=== PATIENT | male | born 1950 | race Caucasian/White ===

== ENCOUNTER 2016-05-31 18:30 | Inpatient (IN) ==
[~2016-05-31 18:30] MED LIST: Clinimix E 5%-15% SOLUTION 2,000 ML with MVI, adult with vitamin K 10 ML IVC SCH
[2016-05-31] MEDS ORDERED: (Alendronate Sodium [Fosamax] 70 MG) PO SCH (19:45)
[2016-05-31] MEDS: *HR* HYDROcodone/Acet 10/325 mg TABLET PO PRN (21:58)
[2016-06-01] MEDS ORDERED: LOVASTATIN 60 MG PO SCH (09:00)
--- NOTE | 2016-06-01 11:14 | Internal Med History&Physical ---
Date of Encounter: 06/01/16 Time of Encounter: 10:30 Assessment and Plan (1) Metastatic colon cancer to liver Current visit: No Status: Acute As per oncologists. (2) History of CVA with residual deficit Current visit: No Status: Chronic He is not on OAC or antiplatelet agents at this time. Head CT of 04/08/2016 at [facility] showed old infarct in the left MCA distribution. I will start him on aspirin 81 mg daily (3) Hypertension Current visit: No Status: Chronic Continue Norvasc and Zestril. Qualifiers: Hypertension type: essential hypertension Qualified Code(s): I10 - Essential (primary) hypertension (4) Anemia Current visit: Yes Status: Acute We will order anemia testing in a.m. Qualifiers: Anemia type: unspecified type Qualified Code(s): D64.9 - Anemia, unspecified (5) Cellulitis of toe, left Current visit: Yes Status: Acute We will give oral doxycycline (6) Hospital acquired PNA Current visit: No Status: Acute He was started on antibiotics May 24. WBC is normal and he has been afebrile for 5 days. I will discontinue the [facility] Internal Medicine - H&P: HPI Chief complaint: Bowel obstruction Admitted From: Hospital to Hospital Transfer Plans for Post Hospital Care: Home History of present illness: Mr. Angel is a 66 year old male who was hospitalized at [facility] May 19- May 31 after presenting with bowel obstruction. He underwent expiratory laparotomy and development of an end colostomy and mucous fistula. He was placed on TPN since his oral intake postoperatively and it was continued since his oral intake was suboptimal. The last surgical progress note of May 30 states TPN was to be weaned off prior to discharge to [facility] swing bed. However orders were written by the discharging hospitalist to continue TPN. A liver biopsy done at surgery showed findings consistent with metastatic colon cancer. He was seen by oncology during his [facility] stay. From review of [facility] records it appears the initial diagnosis of cancer was made during the [facility] stay. He did not receive any definitive treatment for the malignancy during his hospital stay. He was admitted to [facility] swing bed for ongoing therapy. Past Med Surg Social Fam HX - Past Medical History Medical history: cancer, CVA, hypertension, other Psychiatric history: no psych history - Past Surgical History Surgical History: no surgical history - Social History Smoking Status: Current every day smoker Smokeless Tobacco Status: No Alcohol use: none Drug use: none - Family History Brother Family Member Ethnicity: Non- Living Status: Still Living Hx Family Cardiac Disorders: Yes (hypertension) Internal Medicine - H&P: Meds Alendronate Sodium [Fosamax] 70 mg PO QWEEK 05/20/16 [History] Amlodipine [Norvasc] 10 mg PO DAILY 05/20/16 [History] Calcium Carbonate [Tums] 650 mg PO DAILY 05/20/16 [History] Cholecalciferol (D-3) [Vitamin D] 2,000 unit PO DAILY 05/20/16 [History] Folic Acid 1 mg PO DAILY 05/20/16 [History] Lisinopril [Zestril] 10 mg PO DAILY 05/20/16 [History] Lovastatin [Altoprev] 60 mg PO DAILY 05/20/16 [History] Potassium Chloride [Klor-Con Sprinkle] 10 meq PO DAILY 05/20/16 [History] Terazosin [Hytrin] 5 mg PO DAILY 05/20/16 [History] HYDROcodone/Acet 10/325 mg [[place] 10-325 mg] 1 each PO Q6H PRN #20 tablet [Rx] Levofloxacin 750 mg PO DAILY #7 tablet 05/31/16 [Rx] Allergies simvastatin Adverse Reaction (Verified 05/20/16 09:58) See Comments UNABLE TO CONFIRM REACTION- [facility] AN ADVERSE REACTION WITH NO REACTION INDICATED All Systems PM: A 10-system review of systems was performed and is negative for pertinent findings except as documented above in the HPI. Review of systems: Gen.: His recorded weights since March 2016 show wide fluctuation ranging from 66.814 kg today to 82.917 kg on May 27. Cardiovascular: He states he has history of hypertension but denies MN heart failure angina DVT or pulmonary embolus Respiratory: He has smoked since age 22 up to 2 packs per day. He denies known chronic lung disease. GI: He had recent colostomy and mucous fistula surgery as per history of present illness. He has known liver metastases. Disorders other disorders of his liver or exocrine pancreas. : Denies hematuria dysuria or kidney stones Neurologic: He claims he had a stroke approximately 25 years ago leaving him with right hemiparesis and significant expressive dysphasia. He denies seizures. Endocrine: He denies diabetes thyroid disease or hyperlipidemia Hematology/oncology: He has colon cancer with metastases to the liver as per above. He had anemia documented during his recent hospital stay at [facility]. Psychiatric: He denies anxiety depression or other mental health issues Musculoskeletal: Denies arthritis gout or other bone joint or muscle disorders. He states he has not walked in many years. - Constitutional Vitals: Temp Pulse Resp BP Pulse Ox 97.4 F L 70 18 134/53 97 06/01/16 07:15 06/01/16 07:15 06/01/16 07:15 06/01/16 07:15 06/01/16 07:15 Exam: Gen.: He is a well-developed well-nourished male who appears in no severe distress at present time. HEENT: Head is atraumatic and normocephalic. Eyes: EOMI. There is no scleral icterus. Mouth: Mucosa is slightly dry Nose: He has surgical scar on the tip of his nose from presumed cancer surgery Neck: Supple and nontender. There is no thyromegaly or adenopathy noted. Heart: Regular without murmurs gallops or ectopics. Lungs: No wheezes or crackles are heard. Abdomen: He has a mucous fistula and end colostomy on his abdominal wall with collection bags in place. Abdomen is soft and nontender. No masses or guarding noted. Extremities: He has significant wasting of the muscles of his feet and legs and right arm. He has stage II pressure sores on the dorsal surface of the second third and fourth left toes at the DIP joint with erythema. The left leg is warm to touch without lymphangitic streaking noted. The right leg is cool to touch. Neurologic: Mental status: He seems to understand questions but has difficulty expressing answers. Cranial nerves: He has slight flattening of the right nasolabial fold. EOMI. Tongue protrudes midline. Forehead wrinkles bilaterally. Motor: He moves his left arm well. The right arm is immobile. Cerebellar: Finger to nose is intact with the left hand. Skin: He had pressure sores on his toes as described above. Otherwise skin is warm and dry. - VTE Documentation of Mechanical Device: Intermittent pneumatic compression device
[2016-06-01] MEDS: Cholecalciferol (D-3) 1,000 UNIT TABLET PO SCH (11:31)
[2016-06-01] MEDS: Folic Acid 1 MG TABLET PO SCH (11:31)
[2016-06-01] MEDS: Doxycycline 100 MG CAPSULE PO SCH ×2 (14:51→21:01)
[2016-06-01] MEDS ORDERED: 0.9 % Sodium Chloride 250 ML IVC ONE (20:20)
[2016-06-02] MEDS: *HR* Enoxaparin 40 MG/0.4 ML SYRINGE SQ SCH (06:12)
[2016-06-02] MEDS: Doxycycline 100 MG CAPSULE PO SCH ×2 (07:51→21:57)
[2016-06-02] MEDS: Aspirin 81 MG TAB.CHEW PO SCH (07:52)
[2016-06-02] MEDS: Cholecalciferol (D-3) 1,000 UNIT TABLET PO SCH (07:53)
[2016-06-02 09:11] LABS: Basophils # 0.1 K/mcL (0.0-0.2); Basophils % 1.3 %; Eosinophils # 0.6 K/mcL (0.0-0.6); Eosinophils % 5.8 %; Hematocrit 36.6 % (37.5-50.1); Hemoglobin 12.3 g/dL (12.9-16.9); Immature Granulocytes % 2.3 % (0-4); Lymphocytes # 1.9 K/mcL (0.6-4.6); Lymphocytes % 20.1 %; Mean Corpuscular HGB Conc 33.6 g/dL (31.6-35.5); Mean Corpuscular Hemoglobin 29.9 pg (28.0-33.3); Mean Corpuscular Volume 88.8 fL (83.0-100.0); Mean Platelet Volume 9.6 fL (9.4-12.4); Monocytes % 9.9 %; Neutrophils # 5.8 K/mcL (1.6-8.9); Platelet Count 313 K/mcL (140-400); Red Blood Count 4.12 M/mcL (4.19-5.50); Red Cell Distribution Width 15.6 % (11.5-14.5); Segmented Neutrophils % 60.6 %
[2016-06-02 11:25] LABS: Alanine Aminotransferase 52 Units/L (0-55); Albumin 2.5 g/dL (3.5-5.0); Albumin/Globulin Ratio 0.6 (1.1-2.2); Alkaline Phosphatase 225 Units/L (38-126); Aspartate Amino Transferase 50 Units/L (5-34); BUN/Creatinine Ratio 27 (6-26); Bilirubin,Total 0.4 mg/dL (0.2-1.2); Blood Urea Nitrogen 28 mg/dL (8-26); Calcium 8.9 mg/dL (8.6-10.8); Carbon Dioxide 26 mEq/L (19-29); Chloride 97 mEq/L (98-109); Globulin 4.1 g/dL (2.4-3.5); Glucose 100 mg/dL (70-99); Magnesium 2.1 mg/dL (1.6-2.6); Osmolality,Calculated 284 (280-300); Sodium 134 mEq/L (136-145); Total Protein 6.6 g/dL (6.0-8.3); eGFR For African Americans > 60 (> 60); eGFR For Non-African Americans > 60 (> 60)
--- NOTE | 2016-06-02 13:55 | Internal Med Progress Note ---
Date of Encounter: 06/02/16 Time of Encounter: 13:45 - Assessment and plan (1) Metastatic colon cancer to liver Current Visit: No Status: Acute Assessment and plan: June 02. As per oncologist (2) History of CVA with residual deficit Current Visit: No Status: Chronic Assessment and plan: June 02. Continue aspirin (3) Hypertension Current Visit: No Status: Chronic Assessment and plan: June 02. Norvasc and Zestril were discontinued because of hypotension. Will observe blood pressure without medication for now. Qualifiers: Hypertension type: essential hypertension Qualified Code(s): I10 - Essential (primary) hypertension (4) Anemia Current Visit: Yes Status: Acute Assessment and plan: June 02. Anemia testing is pending. Hemoglobin stable at 12.3. Qualifiers: Anemia type: unspecified type Qualified Code(s): D64.9 - Anemia, unspecified (5) Cellulitis of toe, left Current Visit: Yes Status: Acute Assessment and plan: June 02. Continue doxycycline (6) Hospital acquired PNA Current Visit: No Status: Acute Assessment and plan: June 02. Remain off antibiotics for now - Subjective Interval history: June 02. He has no new complaints - Constitutional Vitals: Temp Pulse Resp BP Pulse Ox 98.0 F 105 16 91/53 95 06/02/16 07:03 06/02/16 10:46 06/02/16 10:46 06/02/16 10:46 06/02/16 10:46 Exam: He is resting comfortably in bed. He is able to answer a few questions. His left toes shows slightly less erythema. Leg temperature more equal now. Reviewed his medications and lab results. Internal Medicine: Result - Labs CBC & Chem 7: 06/02/16 08:30 06/02/16 08:30 Labs: Short CBC 06/02/16 Range/Units 08:30 WBC 9.6 (4.3-11.1) K/mcL Hgb 12.3 L (12.9-16.9) g/dL Hct 36.6 L (37.5-50.1) % Plt Count 313 D (140-400) K/mcL Neutrophils # 5.8 (1.6-8.9) K/mcL BMP 06/02/16 08:30 Sodium 134 L Potassium 4.0 Chloride 97 L Carbon Dioxide 26 BUN 28 H D Creatinine 1.05 D Glucose 100 H Calcium 8.9 Liver Function 06/02/16 Range/Units 08:30 Total Bilirubin 0.4 (0.2-1.2) mg/dL AST 50 H (5-34) Units/L ALT 52 (0-55) Units/L Alkaline Phosphatase 225 H (38-126) Units/L Albumin 2.5 L (3.5-5.0) g/dL - VTE Documentation of Mechanical Device: Intermittent pneumatic compression device Consult Discharge Plan - Plan Referrals: Cristobal Barahona MD [Partnered Physician] - 06/06/16 8:10 am [place],PCP [Primary Care Provider] - 1 week
[2016-06-02 14:28] LABS: Folate 10.7 ng/mL (7.0-31.4)
[2016-06-02] MEDS: *HR* HYDROcodone/Acet 10/325 mg TABLET PO PRN (14:58)
[2016-06-02 15:57] LABS: % Iron Saturation 14 % (20-55); Iron 37 mcg/dL (65-175); Transferrin 185 mg/dL (174-364)
[2016-06-02 16:18] LABS: Ferritin 1622 ng/ml (22-275)
[2016-06-03] MEDS: *HR* Enoxaparin 40 MG/0.4 ML SYRINGE SQ SCH (05:01)
[2016-06-03] MEDS: *HR* HYDROcodone/Acet 10/325 mg TABLET PO PRN (05:01)
[2016-06-03] MEDS: Aspirin 81 MG TAB.CHEW PO SCH (08:22)
[2016-06-03] MEDS: Doxycycline 100 MG CAPSULE PO SCH (08:22)
[2016-06-03] MEDS: Cholecalciferol (D-3) 1,000 UNIT TABLET PO SCH (08:23)
[2016-06-03] MEDS: Folic Acid 1 MG TABLET PO SCH (08:23)
[2016-06-04] MEDS: Doxycycline 100 MG CAPSULE PO SCH ×3 (01:02→20:57)
[2016-06-04] MEDS: *HR* HYDROcodone/Acet 10/325 mg TABLET PO PRN ×3 (01:03→22:52)
[2016-06-04] MEDS: Folic Acid 1 MG TABLET PO SCH ×2 (01:08→10:09)
[2016-06-04] MEDS: Aspirin 81 MG TAB.CHEW PO SCH (10:09)
[2016-06-04] MEDS: *HR* Enoxaparin 40 MG/0.4 ML SYRINGE SQ SCH (10:09)
[2016-06-04] MEDS: Cholecalciferol (D-3) 1,000 UNIT TABLET PO SCH (10:09)
[2016-06-05] MEDS: *HR* HYDROcodone/Acet 10/325 mg TABLET PO PRN ×3 (05:55→18:17)
[2016-06-05] MEDS: *HR* Enoxaparin 40 MG/0.4 ML SYRINGE SQ SCH (05:55)
[2016-06-05] MEDS: Aspirin 81 MG TAB.CHEW PO SCH (09:48)
[2016-06-05] MEDS: Cholecalciferol (D-3) 1,000 UNIT TABLET PO SCH (09:49)
[2016-06-05] MEDS: Folic Acid 1 MG TABLET PO SCH (09:49)
[2016-06-05] MEDS: Doxycycline 100 MG CAPSULE PO SCH ×2 (09:49→21:52)
--- NOTE | 2016-06-05 10:45 | Internal Med Progress Note ---
Date of Encounter: 06/05/16 Time of Encounter: 10:35 - Assessment and plan (1) Metastatic colon cancer to liver Current Visit: No Status: Acute Assessment and plan: June 02. As per oncologist (2) History of CVA with residual deficit Current Visit: No Status: Chronic Assessment and plan: June 02. Continue aspirin (3) Hypertension Current Visit: No Status: Chronic Assessment and plan: June 02. Norvasc and Zestril were discontinued because of hypotension. Will observe blood pressure without medication for now. June 05. Blood pressure remains well controlled off medications. Qualifiers: Hypertension type: essential hypertension Qualified Code(s): I10 - Essential (primary) hypertension (4) Anemia Current Visit: Yes Status: Acute Assessment and plan: June 02. Anemia testing is pending. Hemoglobin stable at 12.3. June 05. Anemia testing showed no factor deficiency. Qualifiers: Anemia type: unspecified type Qualified Code(s): D64.9 - Anemia, unspecified (5) Cellulitis of toe, left Current Visit: Yes Status: Acute Assessment and plan: June 02. Continue doxycycline - Subjective Interval history: June 02. He has no new complaints June 05. He has no new complaints - Constitutional Vitals: Temp Pulse Resp BP Pulse Ox 98.4 F 56 16 104/60 98 06/05/16 06:54 06/05/16 06:54 06/05/16 06:54 06/05/16 06:54 06/05/16 06:54 Exam: He is resting comfortably in bed. His heart is regular without murmurs gallops or ectopics. Lungs are clear anteriorly. Extremities show no edema. I note his oral intake, labs, and medications. Internal Medicine: Result - Labs CBC & Chem 7: 06/02/16 08:30 06/02/16 08:30 - VTE Documentation of Mechanical Device: Intermittent pneumatic compression device Consult Discharge Plan - Plan Referrals: Cristobal Barahona MD [Partnered Physician] - 06/06/16 8:10 am [place],PCP [Primary Care Provider] - 1 week
[2016-06-06 05:37] LABS: Basophils # 0.1 K/mcL (0.0-0.2); Eosinophils # 0.7 K/mcL (0.0-0.6); Eosinophils % 6.4 %; Hematocrit 35.6 % (37.5-50.1); Immature Granulocytes % 0.9 % (0-4); Lymphocytes # 2.4 K/mcL (0.6-4.6); Lymphocytes % 21.8 %; Mean Corpuscular HGB Conc 33.7 g/dL (31.6-35.5); Mean Corpuscular Hemoglobin 29.5 pg (28.0-33.3); Mean Corpuscular Volume 87.5 fL (83.0-100.0); Mean Platelet Volume 9.2 fL (9.4-12.4); Monocytes # 1.3 K/mcL (0.0-1.3); Monocytes % 12.2 %; Neutrophils # 6.4 K/mcL (1.6-8.9); Platelet Count 356 K/mcL (140-400); Red Blood Count 4.07 M/mcL (4.19-5.50); Red Cell Distribution Width 14.7 % (11.5-14.5); Segmented Neutrophils % 57.7 %
[2016-06-06 06:05] LABS: Alanine Aminotransferase 31 Units/L (0-55); Albumin 2.7 g/dL (3.5-5.0); Albumin/Globulin Ratio 0.7 (1.1-2.2); Alkaline Phosphatase 159 Units/L (38-126); Aspartate Amino Transferase 27 Units/L (5-34); BUN/Creatinine Ratio 23 (6-26); Bilirubin,Total 0.3 mg/dL (0.2-1.2); Blood Urea Nitrogen 17 mg/dL (8-26); Carbon Dioxide 24 mEq/L (19-29); Chloride 103 mEq/L (98-109); Glucose 98 mg/dL (70-99); Osmolality,Calculated 284 (280-300); Potassium 3.8 mEq/L (3.5-4.5); Sodium 136 mEq/L (136-145); Total Protein 6.7 g/dL (6.0-8.3); eGFR For African Americans > 60 (> 60); eGFR For Non-African Americans > 60 (> 60)
[2016-06-06] MEDS: *HR* Enoxaparin 40 MG/0.4 ML SYRINGE SQ SCH (06:05)
[2016-06-06] MEDS: Cholecalciferol (D-3) 1,000 UNIT TABLET PO SCH (10:55)
[2016-06-06] MEDS: Doxycycline 100 MG CAPSULE PO SCH ×2 (10:55→21:08)
[2016-06-06] MEDS: Aspirin 81 MG TAB.CHEW PO SCH (10:56)
[2016-06-06] MEDS: Folic Acid 1 MG TABLET PO SCH (10:56)
[2016-06-07] MEDS: *HR* Enoxaparin 40 MG/0.4 ML SYRINGE SQ SCH (06:26)
[2016-06-07] MEDS: Doxycycline 100 MG CAPSULE PO SCH ×2 (09:26→20:27)
[2016-06-07] MEDS: Folic Acid 1 MG TABLET PO SCH (09:26)
[2016-06-07] MEDS: Cholecalciferol (D-3) 1,000 UNIT TABLET PO SCH (09:27)
[2016-06-07] MEDS: Aspirin 81 MG TAB.CHEW PO SCH (09:27)
[2016-06-08] MEDS: *HR* Enoxaparin 40 MG/0.4 ML SYRINGE SQ SCH (05:50)
--- NOTE | 2016-06-08 10:51 | Internal Med Progress Note ---
Date of Encounter: 06/08/16 Time of Encounter: 10:35 - Assessment and plan (1) Metastatic colon cancer to liver Current Visit: No Status: Acute Assessment and plan: June 02. As per oncologist (2) History of CVA with residual deficit Current Visit: No Status: Chronic Assessment and plan: June 02. Continue aspirin (3) Hypertension Current Visit: No Status: Chronic Assessment and plan: June 02. Norvasc and Zestril were discontinued because of hypotension. Will observe blood pressure without medication for now. June 05. Blood pressure remains well controlled off medications. Qualifiers: Hypertension type: essential hypertension Qualified Code(s): I10 - Essential (primary) hypertension (4) Anemia Current Visit: Yes Status: Acute Qualifiers: Anemia type: unspecified type Qualified Code(s): D64.9 - Anemia, unspecified (5) Cellulitis of toe, left Current Visit: Yes Status: Acute Assessment and plan: June 02. Continue doxycycline June 08. We will discontinue doxycycline since he has completed a one-week course. - Subjective Interval history: June 02. He has no new complaints June 05. He has no new complaints June 08. He has no new complaints. - Constitutional Vitals: Temp Pulse Resp BP Pulse Ox 97.4 F L 64 20 131/80 96 06/07/16 18:58 06/08/16 09:36 06/08/16 09:36 06/08/16 09:36 06/08/16 09:36 Exam: He is resting comfortably in bed and appears in no acute distress. I examined his midline abdominal incision. There is some erythema of the shavonne insertion sites but no significant wound infection otherwise. His colostomy and mucous fistula sites are unremarkable. The cellulitis on his toes seems improved. There is no extremity edema. I reviewed his medications and lab results. Internal Medicine: Result - Labs CBC & Chem 7: 06/06/16 05:10 06/06/16 05:10 - VTE Documentation of Mechanical Device: Intermittent pneumatic compression device Consult Discharge Plan - Plan Referrals: Cristobal Barahona MD [Partnered Physician] - 06/06/16 8:10 am [facility] [Primary Care Provider] - 1 week
[2016-06-08] MEDS: Aspirin 81 MG TAB.CHEW PO SCH (10:57)
[2016-06-08] MEDS: Cholecalciferol (D-3) 1,000 UNIT TABLET PO SCH (10:57)
[2016-06-08] MEDS: Folic Acid 1 MG TABLET PO SCH (10:58)
[2016-06-08] MEDS: Doxycycline 100 MG CAPSULE PO SCH (11:14)
[2016-06-09] MEDS: *HR* HYDROcodone/Acet 10/325 mg TABLET PO PRN ×2 (02:51→17:23)
[2016-06-09] MEDS: *HR* Enoxaparin 40 MG/0.4 ML SYRINGE SQ SCH (06:11)
[2016-06-09] MEDS: Cholecalciferol (D-3) 1,000 UNIT TABLET PO SCH (10:33)
[2016-06-09] MEDS: Aspirin 81 MG TAB.CHEW PO SCH (10:33)
[2016-06-09] MEDS: Folic Acid 1 MG TABLET PO SCH (10:33)
[2016-06-09 10:54] LABS: Alanine Aminotransferase 25 Units/L (0-55); Albumin/Globulin Ratio 0.7 (1.1-2.2); Alkaline Phosphatase 162 Units/L (38-126); Aspartate Amino Transferase 21 Units/L (5-34); BUN/Creatinine Ratio 21 (6-26); Bilirubin,Total 0.3 mg/dL (0.2-1.2); Blood Urea Nitrogen 17 mg/dL (8-26); Calcium 9.2 mg/dL (8.6-10.8); Carbon Dioxide 25 mEq/L (19-29); Chloride 102 mEq/L (98-109); Globulin 4.4 g/dL (2.4-3.5); Glucose 93 mg/dL (70-99); Osmolality,Calculated 285 (280-300); Potassium 3.9 mEq/L (3.5-4.5); Sodium 137 mEq/L (136-145); Total Protein 7.4 g/dL (6.0-8.3); eGFR For African Americans > 60 (> 60); eGFR For Non-African Americans > 60 (> 60)
[2016-06-10] MEDS ORDERED: Ondansetron ODT 4 MG TAB.RAPDIS SL PRN (05:34)
[2016-06-10] MEDS: *HR* Enoxaparin 40 MG/0.4 ML SYRINGE SQ SCH (05:58)
[2016-06-10 06:27] VITALS: BP 163/91
[2016-06-10] MEDS: Folic Acid 1 MG TABLET PO SCH (09:37)
[2016-06-10] MEDS: Cholecalciferol (D-3) 1,000 UNIT TABLET PO SCH (09:37)
[2016-06-10] MEDS: Aspirin 81 MG TAB.CHEW PO SCH (09:37)
--- NOTE | 2016-06-10 12:03 | Discharge Summary ---
Date of Encounter: 06/10/16 Time of Encounter: 11:50 - Discharge Diagnosis (1) Metastatic colon cancer to liver Priority: Primary Status: Acute (2) History of CVA with residual deficit Priority: Secondary Status: Chronic (3) Hypertension Priority: Secondary Status: Chronic Qualifiers: Hypertension type: essential hypertension Qualified Code(s): I10 - Essential (primary) hypertension (4) Anemia Priority: Secondary Status: Acute Qualifiers: Anemia type: unspecified type Qualified Code(s): D64.9 - Anemia, unspecified (5) Cellulitis of toe, left Priority: Secondary Status: Acute - Discharge Medications Prescriptions: HYDROcodone/Acet 10/325 mg [[place] 10-325 mg] 1 each PO Q6H PRN #20 tablet PRN Reason: Moderate Pain Zolpidem [Ambien] 5 mg PO HS PRN #7 tablet PRN Reason: Insomnia Home Medications: Potassium Chloride [Klor-Con Sprinkle] 10 meq PO DAILY 05/20/16 [History] Aspirin 81 mg PO DAILY tab.chew 06/10/16 [Rx] DiphenhydraMINE [Benadryl] 25 mg PO HS PRN #0 udc 06/10/16 [Rx] HYDROcodone/Acet 10/325 mg [[place] 10-325 mg] 1 each PO Q6H PRN #20 tablet [Rx] Zolpidem [Ambien] 5 mg PO HS PRN #7 tablet 06/10/16 [Rx] Allergies/Adverse Reactions: Allergies simvastatin Adverse Reaction (Verified 05/20/16 09:58) See Comments UNABLE TO CONFIRM REACTION- LISTED ON [facility] MED LIST AN ADVERSE REACTION WITH NO REACTION INDICATED Date of admission: 05/31/16 18:39 Primary care physician: PCP DC Consults: 05/31/16 19:55 Consult for Pharmacy Education [CONS] Routine Reason for Consult: New swing bed admission. Call Completed: No Consult to Nutrition [CONS] Routine Comment: TPN Consulting Provider: NUTRITION Reason for Dietary Consult: TPN Start and Manage Consult to Occupational Therapy [CONS] Routine Comment: Assess, develop, and evaluate plan care. Consult to Physical Therapy [CONS] Routine Comment: Assess, develop, and evaluate plan care. Consult to [facility] Knocker [CONS] Routine Reason for SW Consult: New swing bed admission. 05/31/16 20:41 Consult to Speech Therapy [CONS] Routine Comment: Evaluate, develop and implement POC Reason for Consult: Past CVA Call Completed: No - Patient Status Disposition: Transfer SNF Functional capacity at discharge: bed bound - Discharge Instructions - Diet and Activity Diet: advance to your usual diet Hospital course: Mr. Angel is a 66 year old male who was hospitalized at [facility] May 19- May 31 after presenting with bowel obstruction. He underwent expiratory laparotomy and development of an end colostomy and mucous fistula. He was placed on TPN since his oral intake postoperatively and it was continued since his oral intake was suboptimal. The last surgical progress note of May 30 states TPN was to be weaned off prior to discharge to [facility] swing bed. However orders were written by the discharging hospitalist to continue TPN. A liver biopsy done at surgery showed findings consistent with metastatic colon cancer. He was seen by oncology during his [facility] stay. From review of [facility] records it appears the initial diagnosis of cancer was made during the [facility] stay. He did not receive any definitive treatment for the malignancy during his hospital stay. He was admitted to [facility] swing bed for ongoing therapy. Initial orders were written by the emergency room physician. I saw him on June 01 and performed a history and physical. He was started on aspirin 81 mg daily for history of past CVA. Blood pressure medications were discontinued because of hypotension with satisfactory control off medication. Anemia testing showed no factor deficiency. Social service consult was made. The patient's brother requested the patient be relocated to a SNF in the [facility] were the patient's brother lives. On June 10 arrangements were complete to be discharged to a [facility] facility. I spoke with the patient the morning of June 10 about his condition and prognosis. He had understanding of the discussion and stated he did not want aggressive interventions including TPN and chemotherapy etc. done. He wished to be comfort measures only. - Time Spent with Patient Total time spent providing and/or coordinating discharge services: - Constitutional Vitals: Temp Pulse Resp BP Pulse Ox 99.0 F 74 16 163/91 98 06/10/16 06:24 06/10/16 06:24 06/10/16 06:24 06/10/16 06:24 06/10/16 06:24 - VTE Documentation of Mechanical Device: Intermittent pneumatic compression device
== END 2016-06-10 15:50 | DRG 949 ==
LOC: INPPIK 18:39
PROVIDERS: ADMIT Internal Medicine; ATTEND Internal Medicine